=== PATIENT | male | born 1990 | race Caucasian/White ===

== ENCOUNTER 2025-02-04 18:22 | Emergency (ER) | payer OTHER | END 2025-02-04 20:31 | LOC: MW.ED 18:22 | DX: S01.511A Laceration without foreign body of lip, initial encounter (principal); F10.129 Alcohol abuse with intoxication, unspecified; Y90.9 Presence of alcohol in blood, level not specified; V49.59XA Passenger injured in collision with other motor vehicles in traffic accident, initial encounter | CPT/HCPCS: 12011; 70450; 70450-26; 72125; 72125-26; 99283; 99284 ==